=== PATIENT | male | born 1980 | race Caucasian/White ===

== ENCOUNTER 2017-03-25 02:53 | Emergency (ER) | payer OTHER, SELFPAY ==
--- NOTE | 2017-03-25 08:46 | RAD ---
4 VIEWS LEFT ELBOW: Date: 03/25/17 COMPARISON: None. HISTORY: Left elbow pain for 2 weeks. FINDINGS: Four views of the left elbow show no evidence of acute fracture or dislocation. No elbow effusion is seen. No degenerative changes are present. IMPRESSION: Unremarkable exam. POS: [facility]
== END 2017-03-25 03:53 | disposition home or self-care (01) ==
LOC: NAV ERS 02:53
DX: M77.12 Lateral epicondylitis, left elbow (principal); F17.210 Nicotine dependence, cigarettes, uncomplicated

== ENCOUNTER 2021-05-16 20:34 | Emergency (ER) | payer SELFPAY | END 2021-05-16 21:15 | disposition home or self-care (01) | LOC: NAV ERS 20:34 | DX: S93.602A Unspecified sprain of left foot, initial encounter (principal); F17.210 Nicotine dependence, cigarettes, uncomplicated; W18.42XA Slipping, tripping and stumbling without falling due to stepping into hole or opening, initial encounter ==

== ENCOUNTER 2024-09-16 20:33 | Emergency (ER) | payer SELFPAY | END 2024-09-16 21:28 | disposition home or self-care (01) | LOC: NAV ERS 20:33 | DX: M65.842 Other synovitis and tenosynovitis, left hand (principal); F17.210 Nicotine dependence, cigarettes, uncomplicated | CPT/HCPCS: 29125; 99283 ==